=== PATIENT | male | born 2000 | race Caucasian/White ===

== ENCOUNTER 2019-10-08 04:36 | Emergency (ER) | payer OTHER ==
[~2019-10-08] VITALS: Ht 175.3 cm; Wt 86.4 kg
[2019-10-08] MEDS ORDERED: HYDROCODONE/ACETAMINOPHEN 5-325 MG TABLET PO ONE (06:45)
[2019-10-08] MEDS ORDERED: KETOROLAC TROMETHAMINE 30 MG/ML VIAL IM ONE (06:45)
[2019-10-08 07:43] VITALS: BP 148/85
== END 2019-10-08 10:07 | disposition home or self-care (01) ==
LOC: EMS 04:36
DX: J20.9 Acute bronchitis, unspecified (principal); Z88.8 Allergy status to other drugs, medicaments and biological substances
CPT/HCPCS: 71046; 93005; 96372; 99283; J1885

== ENCOUNTER 2019-10-13 17:22 | Emergency (ER) | payer OTHER ==
[~2019-10-13] VITALS: Ht 175.3 cm; Wt 86.4 kg
[2019-10-13] MEDS ORDERED: KETOROLAC TROMETHAMINE 30 MG/ML VIAL IM ONE (19:30)
[2019-10-13 21:41] VITALS: BP 137/77
== END 2019-10-13 21:43 | disposition home or self-care (01) ==
LOC: EMS 17:24
DX: J40 Bronchitis, not specified as acute or chronic (principal); Z88.8 Allergy status to other drugs, medicaments and biological substances
CPT/HCPCS: 71046; 93005; 96372; 99283; J1885

== ENCOUNTER 2019-12-07 15:47 | Emergency (ER) | payer OTHER ==
[~2019-12-07] VITALS: Ht 175.3 cm; Wt 86.4 kg
[2019-12-07] MEDS ORDERED: KETOROLAC TROMETHAMINE 30 MG/ML VIAL IM ONE (17:45)
[2019-12-07] MEDS ORDERED: LORATADINE 10 MG TABLET PO ONE (17:45)
[2019-12-07] MEDS ORDERED: BENZONATATE 100 MG CAPSULE PO ONE (17:45)
[2019-12-07 19:58] VITALS: BP 132/74
== END 2019-12-07 20:57 | disposition home or self-care (01) ==
LOC: EMS 15:51
DX: J45.909 Unspecified asthma, uncomplicated (principal); Z88.8 Allergy status to other drugs, medicaments and biological substances
CPT/HCPCS: 71045; 96372; 99283; J1885

== ENCOUNTER 2021-02-27 10:17 | Emergency (ER) | payer OTHER ==
[~2021-02-27] VITALS: Ht 172.7 cm; Wt 88.6 kg
[2021-02-27] MEDS ORDERED: BUPR1FIL7 SL (10:43)
[2021-02-27] MEDS ORDERED: HydrOXYzine PAMOATE 25 MG CAPSULE PO ONE (13:45)
[2021-02-27 14:31] VITALS: BP 117/52
== END 2021-02-27 17:00 | disposition home or self-care (01) ==
LOC: EMS 10:18
DX: F41.9 Anxiety disorder, unspecified (principal); F13.20 Sedative, hypnotic or anxiolytic dependence, uncomplicated; Z88.8 Allergy status to other drugs, medicaments and biological substances
CPT/HCPCS: 99283